=== PATIENT | male | born 1995 | race Caucasian/White ===

== ENCOUNTER 2018-03-13 12:29 | Emergency (ER) | payer SELFPAY ==
[~2018-03-13] VITALS: Ht 190.5 cm; Wt 109.1 kg
[2018-03-13 13:59] VITALS: BP 147/85
[2018-03-13] MEDS ORDERED: IBUPROFEN 800 MG TABLET PO ONE (14:15)
== END 2018-03-13 14:42 | disposition home or self-care (01) ==
LOC: EMS 12:33
DX: S93.401A Sprain of unspecified ligament of right ankle, initial encounter (principal); X50.1XXA Overexertion from prolonged static or awkward postures, initial encounter; Y93.01 Activity, walking, marching and hiking; Y92.89 Other specified places as the place of occurrence of the external cause; Y99.8 Other external cause status
CPT/HCPCS: 29515; 99284